=== PATIENT | male | born 1975 | race African-American/Black ===

== ENCOUNTER 2019-01-08 09:44 | Emergency (ER) | payer OTHER ==
[~2019-01-08] VITALS: Ht 188 cm; Wt 129.3 kg
[2019-01-08] MEDS ORDERED: LIDOCAINE WITH 8.4% SOD BICARB 3 ML DISP.SYRIN. INJ ONE (10:15)
[2019-01-08] MEDS ORDERED: CEPH-264 PO (10:53)
[2019-01-08] MEDS ORDERED: SULF1TAB23 PO (10:53)
--- NOTE | 2019-01-08 10:53 | PHYS DOC ---
Past Medical History Past Medical History: No Pertinent History, Unknown Past Surgical History: No Surgical History Alcohol Use: Occasionally Drug Use: None Adult General Chief Complaint Chief Complaint: ABSCESS HPI HPI Patient is a 43 year old male presents to ED complaining of abscess to left buttock 3 days ago. Patient states he has a history of abscess. States he tried to pop it but nothing came out. Describes the pain as sharp. He rates the pain as 4 out 10. Pain with sitting. Denies fever, nausea/vomiting, diarrhea, drainage, dysuria, chest pain or shortness of breath. Review of Systems Review of Systems Constitutional: Denies fever or chills [] Eyes: Denies change in visual acuity, redness, or eye pain [] HENT: Denies nasal congestion or sore throat [] Respiratory: Denies cough or shortness of breath [] Cardiovascular: No additional information not addressed in HPI [] GI: Denies abdominal pain, nausea, vomiting, bloody stools or diarrhea [] : Denies dysuria or hematuria [] Musculoskeletal: Denies back pain or joint pain [] Integument: Complains of abscess. Denies rash or skin lesions [] Neurologic: Denies headache, focal weakness or sensory changes [] All other systems were reviewed and found to be within normal limits, except as documented in this note. Current Medications Current Medications Current Medications Medications (Trade) Dose Ordered Sig/[facility] Start Time Stop Time Status Last Admin Dose Admin Lidocaine/Sodium Bicarbonate (Buffered Lidocaine 1%) 3 ml 1X ONCE 01/08/19 10:15 01/08/19 10:16 DC 01/08/19 10:24 3 ML Allergies Allergies Allergies Coded Allergies Type Severity Reaction Last Updated Verified No Known Drug Allergies 01/29/14 No Physical Exam Physical Exam Constitutional: Well developed, well nourished, no acute distress, non-toxic appearance. [] HENT: Normocephalic, atraumatic Cardiovascular:Heart rate regular rhythm, no murmur [] Lungs & Thorax: Bilateral breath sounds clear to auscultation [] Abdomen: Bowel sounds normal, soft, no tenderness, no masses, no pulsatile masses. [] Skin: Warm, dry. 3 x 3 cm round abscess to left buttock. Back: No tenderness, no CVA tenderness. [] Extremities: No tenderness, no cyanosis, no clubbing, ROM intact, no edema. [] Neurologic: Alert and oriented X 3, normal motor function, normal sensory function, no focal deficits noted. [] Psychologic: Affect normal, judgement normal, mood normal. [] Current Patient Data Vital Signs Vital Signs Date Time Temp Pulse Resp B/P (MAP) Pulse Ox O2 Delivery O2 Flow Rate FiO2 01/08/19 10:04 98.4 80 20 178/77 (110) 97 Room Air 98.4 EKG EKG [] Radiology/Procedures Radiology/Procedures [] Course & Med Decision Making Course & Med Decision Making Pertinent Labs and Imaging studies reviewed. (See chart for details) []Abscess incision and drainage completed. No complications. Patient tolerated well. Tetanus up-to-date. We'll discharge with prophylactic antibiotics and discussed symptomatic treatment. Discussed follow-up for reevaluation in 3 days. Provided contact information and education. Discussed reasons to return to the ED. Patient understands and agrees with plan. Dragon Disclaimer Dragon Disclaimer This electronic medical record was generated, in whole or in part, using a voice recognition dictation system. Departure Departure Impression: Primary Impression: Abscess Disposition: 01 HOME, SELF-CARE Condition: IMPROVED Referrals: FRANK RYAN MD Patient Instructions: Abscess, Care After Scripts Cephalexin (KEFLEX) 500 Mg Capsule 1 CAP PO TID for 7 Days, #21 CAP Prov: YUMIKO MCGEE 01/08/19 Sulfamethoxazole/Trimethoprim (BACTRIM 400-80 MG TABLET) 1 Each Tablet 1 TAB PO BID, #20 TAB Prov: YUMIKO MCGEE 01/08/19 YUMIKO MCGEE Jan 08, 2019 10:53
[2019-01-08 11:28] VITALS: BP 144/81
== END 2019-01-08 11:28 | disposition home or self-care (01) ==
LOC: ER 09:44
DX: L02.31 Cutaneous abscess of buttock (principal)
CPT/HCPCS: 10060; 99283